=== PATIENT | male | born 1945 | race Caucasian/White ===

== ENCOUNTER 2018-03-07 23:20 | Emergency (ER) | payer OTHER ==
[~2018-03-07] VITALS: Ht 182.8 cm; Wt 95.3 kg
--- NOTE | ~2018-03-07 | EKG ---
[place], [place] ELECTROCARDIOGRAM REPORT NAME: MAT SOTO UNIT #: [id number] ROOM: DOCTOR: EPIPHANY DRAFT REPORT BIRTHDATE: [birth year] [facility] Test Date: 2018-03-07 Test Time: 23:41:43 Pat Name: MAT SOTO Department: Patient ID: ELOH- Room: Gender: Color Finisher: : 1945 Requested By: ROSEMARIE NEAL Order Number: [id number] Reading MD: Measurements Intervals [place] Rate: 90 P: 78 VA: 179 QRS: 62 QRSD: 100 T: 81 QT: 369 QTc: 452 Interpretive Statements Sinus rhythm Probable left atrial enlargement Borderline repolarization abnormality Baseline wander in lead(s) V1 Compared to ECG 02/05/2018 07:01:20 No significant changes CM:EKGRPT:ELECTROCARDIOGRAM REPORT 45 ROSEMARIE NEAL MD [facility] DRAFT REPORT ROSEMARIE NEAL MD
--- NOTE | ~2018-03-07 | EKG ---
[place], [place] ELECTROCARDIOGRAM REPORT NAME: MAT SOTO UNIT #: [id number] ROOM: DOCTOR: EPIPHANY DRAFT REPORT BIRTHDATE: [birth year] [facility] Test Date: 2018-03-07 Test Time: 23:41:43 Pat Name: MAT SOTO Department: Room: Gender: Business Applications Analyst: Fermin Whittington : 1945 Requested By: ROSEMARIE NEAL Order Number: [id number] Reading MD: Neisha Salgado MD Measurements Intervals [place] Rate: 90 P: 78 [place]: 179 QRS: 62 QRSD: 100 T: 81 QT: 369 QTc: 452 Interpretive Statements Sinus rhythm Probable left atrial enlargement Borderline repolarization abnormality Baseline wander in lead(s) V1 No previous ECG available for comparison Electronically Signed On 03-12-2018 11:07:21 PST by Neisha Salgado MD CM:EKGRPT:ELECTROCARDIOGRAM REPORT [id number] ROSEMARIE NEAL MD EPIPHANY DRAFT REPORT ROSEMARIE NEAL MD
[2018-03-08] MEDS ORDERED: ASPIRIN CHEWABL81 MG PO (00:02)
[2018-03-08] MEDS ORDERED: ZESTRIL10 MG PO (00:03)
[2018-03-08] MEDS ORDERED: LIPITOR80 MG PO (00:03)
[2018-03-08] MEDS ORDERED: MIRALAX17 GM PO (00:03)
[2018-03-08] MEDS ORDERED: SENNA8.6 MG PO (00:03)
[2018-03-08 00:04] LABS: INTERNATIONAL NORM RATIO 0.9 (2.0-3.5)
[2018-03-08] MEDS ORDERED: ESOMEPRAZOLE MA20 MG PO (00:05)
[2018-03-08 00:11] LABS: ALBUMIN 3.9 gm/dl (3.1-4.5); ALKALINE PHOSPHATASE 52 U/L (45-117); BUN 25 mg/dl (7-24); CHLORIDE 105 mmol/L (98-107); CREATININE 1.55 mg/dL (0.70-1.30); POTASSIUM 3.7 mmol/L (3.5-5.1); SGOT/AST 33 IU/L (3-35); SGPT/ALT 84 U/L (12-78); SODIUM 138 mmol/L (136-145); TOTAL PROTEIN 7.2 gm/dL (6.4-8.2)
[2018-03-08 00:13] LABS: TROPONIN I < 0.015 ng/ml (<0.045)
[2018-03-08 00:22] LABS: BASO % 0.2 % (0.0-1.0); EOS # 0.2 10*3/uL (0.0-0.4); EOS % 2.2 % (1.0-4.0); HEMOGLOBIN 14.7 g/dl (14.0-18.0); LYMPH # 2.4 10*3/uL (1.3-4.4); LYMPH % 21.5 % (27.0-41.0); MEAN CELL VOLUME 96.2 fl (80.0-94.0); MEAN CORPUSCULAR HGB 32.9 pg (27.0-31.0); MEAN CORPUSCULAR HGB CONC 34.2 g/dl (33.0-37.0); MEAN PLATELET VOLUME 9.9 fl (9.6-12.3); MONO # 1.4 10*3/uL (0.1-1.0); NEUT # 6.9 10*3/uL (2.3-7.9); NEUT % 62.5 % (47.0-73.0); PLATELET COUNT AUTOMATED 227 10*3/uL (130-400); RED BLOOD COUNT 4.47 10*6/uL (4.50-5.90); RED CELL DISTRI WIDTH 12.5 % (0-14.5)
== END 2018-03-08 03:55 | disposition short-term general hospital (02) ==
LOC: ED 23:20
PROVIDERS: Emergency Medicine Emergency Medical Services
DX: R51 Headache (principal); R42 Dizziness and giddiness; R11.2 Nausea with vomiting, unspecified; H53.8 Other visual disturbances; R61 Generalized hyperhidrosis; R79.1 Abnormal coagulation profile; I10 Essential (primary) hypertension; Z79.899 Other long term (current) drug therapy; Z79.82 Long term (current) use of aspirin; Z88.1 Allergy status to other antibiotic agents